=== PATIENT | female | born 1980 | race Caucasian/White ===

== ENCOUNTER 2018-03-19 11:52 | Outpatient (CLI) | payer BC ==
[2018-03-19 17:47] LABS: eGFR (African) > 60; eGFR (Non-African) > 60
== END 2018-03-19 11:53 ==
LOC: LAB 11:52
PROVIDERS: ATTEND Nurse Practitioner Family
DX: L40.9 Psoriasis, unspecified (principal); M13.0 Polyarthritis, unspecified
CPT/HCPCS: 36415; 80053; 85651; 86038; 86431